=== PATIENT | female | born 1955 | race Caucasian/White ===

== ENCOUNTER → 2022-11-24 14:35 | Outpatient (BNVA) | payer MEDICARE, SELFPAY | PROVIDERS: Family Provider Family Medicine; Referring Provider Nurse Practitioner Family; Visit Provider Physician Assistant | DX: M75.41 Impingement syndrome of right shoulder | CPT/HCPCS: 20610; 73030; 99203; J3301 ==

== ENCOUNTER → 2023-02-24 08:09 | Outpatient (BNVA) | payer MEDICARE, SELFPAY | PROVIDERS: Family Provider Family Medicine; PCP Family Medicine; Visit Provider Physician Assistant | DX: M75.41 Impingement syndrome of right shoulder (principal) | CPT/HCPCS: 20610; 73030; 99213; J3301 ==

== ENCOUNTER 2023-04-07 08:05 | Outpatient (CLI) | payer MEDICARE, MEDICAID, SELFPAY ==
--- NOTE | 2023-04-07 08:10 | FL_ITS ---
WS: [id number] FL barium enema [id number] REASON FOR EXAM: SCREENING COLONOSCOPY/EVALUATE CECUM ASCENDING COLON FLUOROSCOPY TIME: 3min [id number] # OF SPOT FILMS: Multiple FINDINGS: The colon is not significantly redundant. Changes in the contour of the barium-filled sigmoid colon compatible with diverticular disease. No constricting lesion of the left colon. No intraluminal mass. Transverse colon was unremarkable. No constricting lesion of the right colon. No intraluminal mass. Normal filling of the appendix and reflux into the terminal ileum. Significant retained volume of barium on the postevacuation examination. IMPRESSION: Diverticular disease of the sigmoid colon. Significant retention of barium on the postevacuation images which may be an indicator of colon inert ia which would relate to the patient's history of chronic constipation.
== END 2023-04-07 08:06 | disposition home or self-care (01) ==
LOC: RAD 08:06
PROVIDERS: PCP Family Medicine; Visit Provider Surgery Vascular Surgery
DX: Z12.11 Encounter for screening for malignant neoplasm of colon (principal); K57.30 Diverticulosis of large intestine without perforation or abscess without bleeding; R93.3 Abnormal findings on diagnostic imaging of other parts of digestive tract
CPT/HCPCS: 74270

== ENCOUNTER → 2023-05-30 09:30 | Outpatient (BNVA) | payer MEDICARE, MEDICAID, SELFPAY | PROVIDERS: PCP Family Medicine; Visit Provider Physician Assistant | DX: M75.41 Impingement syndrome of right shoulder (principal) | CPT/HCPCS: 99213 ==

== ENCOUNTER → 2024-02-22 15:07 | Outpatient (BNVA) | payer MEDICARE, SELFPAY | PROVIDERS: PCP Family Medicine; Visit Provider Physician Assistant | DX: M75.41 Impingement syndrome of right shoulder (principal); M54.50 Low back pain, unspecified | CPT/HCPCS: 20610; 73030; 99213; J3301 ==

== ENCOUNTER → 2024-03-26 13:46 | Outpatient (BNVA) | payer MEDICARE, SELFPAY | PROVIDERS: PCP Family Medicine; Visit Provider Orthopaedic Surgery | DX: M54.50 Low back pain, unspecified (principal) | CPT/HCPCS: 72110; 99204 ==

== ENCOUNTER 2024-04-08 11:07 | Outpatient (CLI) | payer MEDICARE, SELFPAY ==
--- NOTE | 2024-04-08 11:00 | MR_ITS ---
WS: [id number] MRI LUMBAR SPINE NONCONTRAST HISTORY: back pain COMPARISON: None available. TECHNIQUE: Sagittal and axial multisequence imaging is submitted. L4 anterolisthesis by 2 mm. No acute fracture. Minimal disc desiccation throughout the lumbar spine. Marrow edema in the articular facets of L4 and L5, greatest on the LEFT. Conus terminates normally at L1-2 disc level. L1-L2: Normal. L2-L3: Mild disc bulging with a moderate LEFT paracentral disc protrusion causing mild encroachment a nd narrowing of the subarticular recess. Mild ligamentum flavum and facet arthritis. Mild LEFT forami nal narrowing. L3-L4: Mild annular disc bulging with a shallow LEFT foraminal disc protrusion. Mild ligamentum flavu m and facet arthritis. Mild subarticular recess encroachment, LEFT greater than RIGHT. L4-L5: Diffuse annular disc bulge with a central disc protrusion encroaching upon the ventral thecal sac and subarticular recesses. Fluid in the facet joints with ligamentum flavum hypertrophy and facet arthritis. Mild central, subarticular recess and foraminal stenosis. Small cyst within the articular facets. L5-S1: Mild annular disc bulging with no stenosis. MR/MR lumbar spine wo con* [id number] IMPRESSION: 1. L4 anterolisthesis by 2 mm. 2. 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 Additional facet joint cyst. There is a small amount of marrow edema i n the facets, greatest on the LEFT. 3. L2-3: Moderate LEFT paracentral disc protrusion encroaching upon the subart icular recess. Mild subarticular recess and LEFT foraminal narrowing. 4. L3-4: Mild subarticular recess encroachment, LEFT greater than RIGHT. 5. L4-5: Mild central, subarticular recess and foraminal stenosis.
== END 2024-04-08 11:08 | disposition home or self-care (01) ==
PROVIDERS: PCP Family Medicine; Visit Provider Orthopaedic Surgery
DX: M48.061 Spinal stenosis, lumbar region without neurogenic claudication (principal); R93.7 Abnormal findings on diagnostic imaging of other parts of musculoskeletal system; M51.369 Other intervertebral disc degeneration, lumbar region without mention of lumbar back pain or lower extremity pain; M51.26 Other intervertebral disc displacement, lumbar region; M47.896 Other spondylosis, lumbar region
CPT/HCPCS: 72148

== ENCOUNTER → 2024-04-18 08:25 | Outpatient (BNVA) | payer MEDICARE, SELFPAY | PROVIDERS: PCP Family Medicine; Visit Provider Orthopaedic Surgery | DX: M43.16 Spondylolisthesis, lumbar region (principal) | CPT/HCPCS: 99214 ==